=== PATIENT | male | born 1980 | race Two or more races ===

== ENCOUNTER 2020-07-01 00:09 | Emergency (ER) | payer SELFPAY | END 2020-07-01 03:27 | disposition left against medical advice (07) | PROVIDERS: Emergency Provider Emergency Medicine | DX: M54.9 Dorsalgia, unspecified (principal) ==

== ENCOUNTER 2021-08-03 21:14 | Emergency (ER) | payer SELFPAY ==
--- NOTE | ~2021-08-03 | XR_ITS ---
EXAMINATION: XR ANKLE, RIGHT CLINICAL INFORMATION: Pain and swelling COMPARISON: None TECHNIQUE: AP, lateral, and mortise views of the right ankle. FINDINGS: The bones and soft tissues are normal. No fracture. Alignment is anatomic. Joint spaces are maintained. No joint effusion. XR/XR ankle RT min 3V IMPRESSION: Normal right ankle.
[2021-08-03 21:42] VITALS: BP 127/83; PULSE 98; RESP 16; TEMP 36.2; O2SAT 99; BMI 28.3
--- NOTE | 2021-08-03 21:43 | ED.LOWEXIN ---
HPI - Extremity Injury (Lower) General Chief Complaint: Extremity Injury, Lower Stated Complaint: right ankle painful and swelling Time Seen by Provider: 08/03/21 21:41 Source: patient Mode of arrival: ambulatory Limitations: no limitations History of Present Illness HPI Narrative: 41 y/o male presenting to the ER for evaluation of right ankle pain and swelling after he missed a step and twisted it 2 days ago. He reports the swelling is slowly going down but the pain persists. He is able to walk on it but has been dragging his right but behind him to help with the pain. He reports the pain is worse when he puts pressure on the heel and the pain is located on both the inside and outside of the ankle. He denies hearing or feeling any pops or snaps at the time of the injury. No knee or hip injury. MD complaint: ankle injury Onset (ago): day(s) (2) Injury: Right: ankle Type of Injury: inversion Place: home Severity: severe Severity scale (1-10): 9 Relieving factors: immobilization and rest Exacerbating factors: weight bearing, movement and palpation Context: walking Associated symptoms: able to partially bear weight Other symptoms: none Related Data Previous Rx's Medication Instructions Recorded ibuprofen 600 mg tablet 600 mg PO Q8H PRN #10 tab 08/03/21 Allergies Allergy/AdvReac Type Severity Reaction Status Date / Time No Known Allergies Allergy Verified 08/03/21 21:45 Review of Systems Review of Systems: Constitutional: No Fever, No Chills Cardiovascular: No Chest Pain, No SOB Gastrointestinal: No Nausea, No Vomiting Musculoskeletal: + joint pain, No Myalgias Skin: No Skin Lesions, No rash Neuro: No Weakness, No Numbness Heme/Lymph: No Bruising, No Lymphadenopathy PMFSH Social History Social History Advance Directives: No Advance Directives Information Provided: No Physical Exam Vital Signs: Vital Signs: Last Vital Signs Temp 97.1 F 08/03/21 21:42 Pulse 98 08/03/21 21:42 Resp 16 08/03/21 21:42 BP 127/83 08/03/21 21:42 Pulse Ox 99 08/03/21 21:42 BMI result Body Mass Index 28.3 Appearance: Alert. Oriented X3. No acute distress. HEENT: normal inspection CVS: Normal heart rate and rhythm. Pulses normal. Respiratory: No respiratory distress. Skin: Skin warm and dry. Normal skin color. Normal skin turgor. No rashes. Extremities: Right ankle with moderate amount of medial and lateral swelling. Tenderness of both the medial and lateral malleoli. Normal range of motion of the ankle. Warm and well perfused. 2+ DP and PT pulses. No point tenderness on the ankle. Ambulates with a antalgic gait, drags the right foot. Neuro: Oriented X 3. No motor deficit. No sensory deficit. Course Course Course Narrative: 41-year-old male presents to the ER for evaluation of a right ankle injury 2 days ago. He is ambulating with a limp but able to bear weight slightly. Swelling is overall improved. X-rays pending to evaluate for possible fracture. Reevaluation(s) Reevaluation #1: X-ray is normal. Will treat ankle sprain with Gal wrap and air cast. Patient declining crutches. Ortho referral given as needed. NSAID prescribed. Stable for DC home. Critical Care Time Critical Care Time Critical Care Time: No Discharge Plan Discharge Clinical Impression: Ankle sprain and strain Patient Disposition: Home, Self-Care Instructions: Ankle Sprain (DC) Additional Instructions: Your x-ray today was normal. Rest your ankle and elevate your foot when possible. Recommend GAL wrap for support and compression. Use ice several times per day for the next 48 hours. You may bear weight as tolerated. If pain is too severe, you can use crutches until better. Take Motrin and/or Tylenol as needed for pain. Follow up with your doctor as needed. Follow up with [facility] as needed - name and number below Prescriptions: New ibuprofen 600 mg tablet 600 mg PO Q8H PRN (Reason: pain) Qty: 10 0RF Referrals: Victor Hugo Irizarry PA-C [[employer]] - 1 week (right ankle sprain)
[2021-08-03] MEDS: Ibuprofen 600 MG TABLET PO (21:57)
== END 2021-08-03 23:12 | disposition home or self-care (01) ==
PROVIDERS: Emergency Provider Emergency Medicine Emergency Medical Services
DX: S93.401A Sprain of unspecified ligament of right ankle, initial encounter (principal); S96.911A Strain of unspecified muscle and tendon at ankle and foot level, right foot, initial encounter; X50.1XXA Overexertion from prolonged static or awkward postures, initial encounter; Y93.9 Activity, unspecified; Y92.009 Unspecified place in unspecified non-institutional (private) residence as the place of occurrence of the external cause; Y99.9 Unspecified external cause status
CPT/HCPCS: 73610; 99283; 99284

== ENCOUNTER 2021-08-09 21:46 | Emergency (ER) | payer SELFPAY ==
--- NOTE | ~2021-08-09 | US_ITS ---
EXAMINATION: US SCROTUM CLINICAL INFORMATION: Left-sided pain. Rule out torsion. Left scrotal pain and swelling for one day. No trauma. No history of surgery. COMPARISON: None TECHNIQUE: A sonogram of the scrotum was performed assessing marroquin-scale appearance and color Doppler flow. Spectral Doppler analysis of the arterial and venous flow were performed in the testes bilaterally. FINDINGS: RIGHT: Right testicle measures 4.7 cm x 1.9 cm x 3.0 cm, volume 14.2 mL. Sport Shoe Spike Assembler grayscale images demonstrate possible minimal scattered punctate parenchymal calcifications. Diffuse microlithiasis is not present. Spectral Doppler analysis of the arterial and venous flow is normal in the right testis. Right epididymal head is normal in size. No right hydrocele or varicocele is seen. Right epididymal Doppler flow is normal. A 3 mm diameter unilocular anechoic cystic focus which may represent a spermatocele is noted within the epididymal head. LEFT: Left testicle measures 4.0 cm x 2.5 cm x 3.0 cm, volume : 16.2 mL. Sport Shoe Spike Assembler grayscale images demonstrate possible minimal scattered punctate (less than 3 mm) calcifications. Diffuse microlithiasis is not present. Spectral Doppler analysis of the arterial and venous flow is normal in the left testis. Left epididymal head is normal in size. A small anechoic left hydrocele is present. Left epididymal Doppler flow is qualitatively hyperemic within the body and tail. Epididymal body demonstrates mild qualitative prominence. A 4 mm diameter rounded anechoic cystic focus is present in the head of the epididymis may represent an incidental spermatocele. The left appendix epididymis is noted without evidence of appendiceal torsion. US/US scrotum doppler IMPRESSION: *Findings suspicious for acute left sided epididymitis. The left epididymis demonstrates hyperemia suspicious for epididymitis. *No evidence of testicular torsion. *Small number of punctate scattered calcifications within the left and right testes. These finding is of uncertain clinical significance. Diffuse testicular microlithiasis is not present.
[2021-08-09 21:54] VITALS: BP 121/91; PULSE 104; RESP 19; TEMP 36.4; O2SAT 98; BMI 27.2
[2021-08-09 22:25] VITALS: BP 134/81; PULSE 94; RESP 16; TEMP 36.8; O2SAT 98
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
[2021-08-09] MEDS: Morphine Sulfate 4 MG/ML CARTRIDGE IVPUSH (22:59)
[2021-08-09 23:09] LABS: Anion Gap 10 (12-20); Blood Urea Nitrogen 7 mg/dL (9-16); Calcium 9.7 mg/dL (8.4-10.2); Carbon Dioxide 26 mmol/L (22-29); Chloride 105 mmol/L (96-108); Creatinine Clr Calc Pharmacy 95.5; Estimated Glomerular Filt Rate > 60; Glucose Random 109 mg/dL (60-115); Potassium 3.9 mmol/L (3.3-5.1); Sodium 137 mmol/L (135-145)
[2021-08-09 23:22] LABS: Hematocrit 43.5 % (42.0-52.0); Hemoglobin 14.4 g/dl (14.0-18.0); Mean Corpuscular HGB Conc 33.1 g/dl (31.0-36.0); Mean Corpuscular Hemoglobin 29.8 pg (27.0-33.0); Mean Corpuscular Volume 89.9 fL (80.0-98.0); Mean Platelet Volume 10.3 fL (9.4-12.4); Platelet Count 333 X10*3/uL (160-400); Red Blood Count 4.84 X10*6/uL (4.60-5.80); Red Cell Distribution Width 14.5 % (11.0-16.0)
[2021-08-09 23:23] LABS: WBC ABN SCTR FOR CBC 1; White Blood Count 17.2 X10*3/uL (4.8-10.8)
[2021-08-09 23:28] LABS: Band Neutrophils Percent 1 % (3-5); Large Platelet PRESENT; Lymphocytes Absolute Manual 1.9 X10*3/uL (1.2-4.9); Lymphocytes Percent Manual 11 % (20-40); Macrocytosis 1+ (5-14) /OIF; Monocytes Absolute Manual 0.7 X10*3/uL (0.1-1.2); Monocytes Percent Manual 4 % (2-11); Neutrophils Absolute Manual 14.6 X10*3/uL (2.0-8.3); Neutrophils Percent Manual 84 % (45-73); Platelet Estimate NORMAL (NORMAL); Platelet Morphology Comment NORMAL; RBC Morphology NORMAL; Smudge Cells PRESENT
[2021-08-10 00:16] VITALS: BP 128/83; PULSE 80; RESP 12; O2SAT 96
[2021-08-10 00:30] LABS: Appearance Urine CLEAR; Color Urine YELLOW; Glucose Urine UA NEG (NEG); Leukocyte Esterase Urine 1+ (NEG); Nitrite Urine NEG (NEG); Specific Gravity - Urine 1.025 (1.005-1.025); UACC Culture Trigger YES; Urine Blood 1+ (NEG); Urine Ketones NEG (NEG); Urine Protein TRACE MG/DL (NEG-TRACE)
[2021-08-10 00:54] LABS: Bacteria Urine 2+ /LPF; Mucus Urine 1+ /LPF; Squamous Epithelial Cell Urine TRACE /LPF
[2021-08-10] MEDS: levoFLOXacin 500 MG TABLET PO (01:15)
[2021-08-10] MEDS: Ketorolac Tromethamine 30 MG/ML VIAL IVPUSH (01:15)
[2021-08-10 11:37] LABS: CT PCR NOT DETECTED (Not Detect.); NG PCR NOT DETECTED (Not Detect.)
== END 2021-08-10 01:40 | disposition home or self-care (01) ==
PROVIDERS: Emergency Provider Emergency Medicine
DX: N45.1 Epididymitis (principal); N50.812 Left testicular pain
CPT/HCPCS: 36415; 76870; 80048; 81001; 85007; 85025; 85027; 87086; 87491; 87591; 93975; 96374; 96375; 99284; 99285; J1885; J2270

== ENCOUNTER 2021-09-20 11:12 | Emergency (ER) | payer SELFPAY ==
[2021-09-20 11:25] VITALS: BP 146/95; BP 149/98; PULSE 107; PULSE 119; RESP 18; TEMP 36.8; O2SAT 97; O2SAT 98; BMI 27.2
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
[2021-09-20] MEDS: Acetaminophen 325 MG TABLET 975 MG PO (11:52)
[2021-09-20] MEDS: Naloxone HCl Nasal TAKE HOME 4 MG SPRAY NOSTRILALT (11:55)
--- NOTE | 2021-09-20 12:58 | PC.NURSE ---
pt decline the cristiane rivera md aware. pt is also adamant about leaving with his roopa (family member) aware.
== END 2021-09-20 13:05 | disposition home or self-care (01) ==
PROVIDERS: Emergency Provider Emergency Medicine
DX: T50.991A Poisoning by other drugs, medicaments and biological substances, accidental (unintentional), initial encounter (principal); F19.10 Other psychoactive substance abuse, uncomplicated; Y92.9 Unspecified place or not applicable
CPT/HCPCS: 99283